=== PATIENT | male | born 1965 | race Caucasian/White ===

== ENCOUNTER → 2020-07-03 | Outpatient (CLI) | payer OTHER ==
[~2020-07-03] MED LIST: COZAAR 25MG TAB25 MG PO; IRON325 M1 PO; OMEPRAZOLE40 MG PO; PANTOPRAZOLE SO40 MG PO; TERAZOSIN HCL2 MG PO; VITAMIN C1000 MG PO
== END ==
LOC: RAD 06-28 08:00
DX: K44.9 Diaphragmatic hernia without obstruction or gangrene (principal); Z98.890 Other specified postprocedural states
CPT/HCPCS: 74246

== ENCOUNTER → 2021-05-29 | Day surgery (SDC) | payer BC | END | disposition home or self-care (01) | LOC: OR 06:09 | DX: Z12.11 Encounter for screening for malignant neoplasm of colon (principal); K63.5 Polyp of colon; K57.30 Diverticulosis of large intestine without perforation or abscess without bleeding; K64.0 First degree hemorrhoids; K22.70 Barrett's esophagus without dysplasia; I10 Essential (primary) hypertension; E66.9 Obesity, unspecified; Z68.31 Body mass index [BMI] 31.0-31.9, adult; Z86.010 Personal history of colon polyps; Z79.899 Other long term (current) drug therapy; Z20.822 Contact with and (suspected) exposure to COVID-19 | CPT/HCPCS: J2001; J2704; J7040 ==